=== PATIENT | female | born 1995 | race Two or more races ===

== ENCOUNTER 2019-05-09 22:12 | Emergency (ER) | payer OTHER ==
[~2019-05-09] VITALS: Ht 160 cm; Wt 127.0 kg
[2019-05-09] MEDS ORDERED: ONDANSETRON PF 4 MG/2 ML VIAL. IV ONE (23:00)
[2019-05-09] MEDS ORDERED: DEXAMETHASONE SOD PHOS 20 MG/5 ML VIAL. IV ONE (23:00)
[2019-05-09] MEDS ORDERED: ACETAMINOPHEN 500 MG TABLET PO ONE (23:00)
[2019-05-09] MEDS ORDERED: FAMOTIDINE 20 MG/2 ML VIAL IVP ONE (23:00)
[2019-05-09] MEDS ORDERED: IV NORMAL SALINE 1000ML BAG 1,000 ML IV ONE (23:00)
[2019-05-09] MEDS ORDERED: KETOROLAC 15 MG/ML VIAL. IV ONE (23:00)
[2019-05-09 23:05] LABS: BASO # 0.1 x10^3/uL (0.0-0.2); BASO % 1 % (0-3); EOS # 0.1 x10^3/uL (0.0-0.7); EOS % 1 % (0-3); HEMATOCRIT 33.4 % (36.0-47.0); HEMOGLOBIN 10.7 g/dL (12.0-15.5); LYMPH # 2.5 x10^3/uL (1.0-4.8); LYMPH % 40 % (24-48); MEAN CORPUSCULAR HEMOGLOBIN 24 pg (25-35); MEAN CORPUSCULAR HGB CONC 32 g/dL (31-37); MEAN CORPUSCULAR VOLUME 73 fL (79-100); MONO # 0.4 x10^3/uL (0.0-1.1); MONO % 7 % (0-9); NEUT # 3.2 x10^3uL (1.8-7.7); NEUT % 51 % (31-73); PLATELET COUNT 206 x10^3/uL (140-400); RED BLOOD COUNT 4.57 x10^6/uL (3.50-5.40); RED CELL DISTRIBUTION WIDTH 16.3 % (11.5-14.5); WHITE BLOOD COUNT 6.3 x10^3/uL (4.0-11.0)
[2019-05-09 23:14] LABS: CALCIUM 8.4 mg/dL (8.5-10.1); CREATININE 0.8 mg/dL (0.6-1.0); GFR 89.7; POTASSIUM 3.5 mmol/L (3.5-5.1)
[2019-05-09 23:21] LABS: ALBUMIN/GLOBULIN RATIO 0.7 (1.0-1.7); MAGNESIUM 1.7 mg/dL (1.8-2.4); TOTAL BILIRUBIN 0.5 mg/dL (0.2-1.0); TOTAL PROTEIN 7.4 g/dL (6.4-8.2)
--- NOTE | 2019-05-09 23:29 | PHYS DOC ---
Past Medical History Past Medical History: Other Additional Past Medical Histor: PREECLAMPSIA Past Surgical History: Other Additional Past Surgical Histo: EAR SX Alcohol Use: None Drug Use: None Adult General Chief Complaint Chief Complaint: NAUSEA/VOMITING/DIARRHA HPI HPI Patient is a 24 year old female with past medical history of preeclampsia and irritable bowel syndrome who presents with fever, cough and nausea ongoing for 4 days. In addition, the patient is complaining of a mild, frontal headache that is slightly worse than her normal headache. She denies any neck stiffness. She also reports mild shortness of breath, more pronounced when she lays flat. She reports this has been present intermittently since giving 4 months ago. The patient reports productive sputum that is nonbloody. She has been taking ibuprofen and Tylenol with moderate improvement in symptoms. She reports that she is up-to-date on her immunizations. Her last menstrual period was last month. She uses no contraception currently. She is breast-feeding but denies any breast pain, erythema or abnormal discharge. Patient reports a mild sore throat with on first day of symptoms but has since resolved. Review of Systems Review of Systems Constitutional: Reports fever. Denies chills Eyes: Denies redness or eye pain HENT: Denies nasal congestion. Reports sore throat that has since resolved. Respiratory: Reports cough and shortness of breath Cardiovascular: Denies chest pain or palpitations GI: Denies abdominal pain, or vomiting. Admits nausea : Denies dysuria or hematuria Musculoskeletal: Denies back pain or joint pain Integument: Denies rash or skin lesions Neurologic: Reports headache. Denies focal weakness or sensory changes Complete systems were reviewed and found to be within normal limits, except as documented in this note. Current Medications Current Medications Current Medications Medications (Trade) Dose Ordered Sig/[facility] Start Time Stop Time Status Last Admin Dose Admin Acetaminophen (Tylenol) 500 mg 1X ONCE 05/09/19 23:00 05/09/19 23:01 DC 05/09/19 23:00 500 MG Dexamethasone Sodium Phosphate (Decadron) 10 mg 1X ONCE 05/09/19 23:00 05/09/19 23:01 DC 05/09/19 23:10 10 MG Famotidine (Pepcid Vial) 20 mg 1X ONCE 05/09/19 23:00 05/09/19 23:01 DC 05/09/19 23:11 20 MG Ketorolac Tromethamine (Toradol 15mg Vial) 15 mg 1X ONCE 05/09/19 23:00 05/09/19 23:01 DC 05/09/19 23:11 15 MG Ondansetron HCl (Zofran) 4 mg 1X ONCE 05/09/19 23:00 05/09/19 23:01 DC 05/09/19 23:11 4 MG Sodium Chloride 1,000 ml @ 1,000 mls/hr 1X ONCE 05/09/19 23:00 05/09/19 23:59 05/09/19 23:10 1,000 MLS/HR Allergies Allergies Allergies Coded Allergies Type Severity Reaction Last Updated Verified sulfamethoxazole Allergy Intermediate 05/09/19 Yes trimethoprim Allergy Intermediate 05/09/19 Yes Physical Exam Physical Exam Constitutional: Well developed, well nourished, no acute distress, non-toxic appearance HENT: Normocephalic, atraumatic, oropharynx moist Eyes: PERRL, EOMI, conjunctiva normal, no discharge Neck: Normal range of motion, tenderness to left sided lymph node palpation, supple Cardiovascular: Heart rate normal, regular rhythm Lungs & Thorax: Bilateral breath sounds clear to auscultation, no wheezing Abdomen: Soft, no tenderness Skin: Warm, dry, no erythema, no rash Back: No tenderness, no CVA tenderness Extremities: No tenderness, ROM intact, no edema Neurologic: Alert and oriented X 3, normal motor function, normal sensory function, no focal deficits noted Psychologic: Affect normal, judgement normal, mood normal Current Patient Data Vital Signs Vital Signs Date Time Temp Pulse Resp B/P (MAP) Pulse Ox O2 Delivery O2 Flow Rate FiO2 05/09/19 22:50 102.1 130 18 149/78 (101) 99 Room Air 102.1 Lab Values Laboratory Tests Test 05/09/19 22:54 05/09/19 23:02 White Blood Count 6.3 x10^3/uL (4.0-11.0) Red Blood Count 4.57 x10^6/uL (3.50-5.40) Hemoglobin 10.7 g/dL (12.0-15.5) L Hematocrit 33.4 % (36.0-47.0) L Mean Corpuscular Volume 73 fL (79-100) L Mean Corpuscular Hemoglobin 24 pg (25-35) L Mean Corpuscular Hemoglobin Concent 32 g/dL (31-37) Red Cell Distribution Width 16.3 % (11.5-14.5) H Platelet Count 206 x10^3/uL (140-400) Neutrophils (%) (Auto) 51 % (31-73) Lymphocytes (%) (Auto) 40 % (24-48) Monocytes (%) (Auto) 7 % (0-9) Eosinophils (%) (Auto) 1 % (0-3) Basophils (%) (Auto) 1 % (0-3) Neutrophils # (Auto) 3.2 x10^3uL (1.8-7.7) Lymphocytes # (Auto) 2.5 x10^3/uL (1.0-4.8) Monocytes # (Auto) 0.4 x10^3/uL (0.0-1.1) Eosinophils # (Auto) 0.1 x10^3/uL (0.0-0.7) Basophils # (Auto) 0.1 x10^3/uL (0.0-0.2) Sodium Level 135 mmol/L (136-145) L Potassium Level 3.5 mmol/L (3.5-5.1) Chloride Level 102 mmol/L (98-107) Carbon Dioxide Level 24 mmol/L (21-32) Anion Gap 9 (6-14) Blood Urea Nitrogen 9 mg/dL (7-20) Creatinine 0.8 mg/dL (0.6-1.0) Estimated GFR (Cockcroft-Gault) 89.7 BUN/Creatinine Ratio 11 (6-20) Glucose Level 121 mg/dL (70-99) H Calcium Level 8.4 mg/dL (8.5-10.1) L Magnesium Level 1.7 mg/dL (1.8-2.4) L Total Bilirubin 0.5 mg/dL (0.2-1.0) Aspartate Amino Transferase (AST) 51 U/L (15-37) H Alanine Aminotransferase (ALT) 66 U/L (14-59) H Alkaline Phosphatase 109 U/L (46-116) Total Protein 7.4 g/dL (6.4-8.2) Albumin 3.0 g/dL (3.4-5.0) L Albumin/Globulin Ratio 0.7 (1.0-1.7) L Lipase 196 U/L (73-393) POC Urine HCG, Qualitative Hcg negative (Negative) Laboratory Tests 05/09/19 22:54 Laboratory Tests 05/09/19 22:54 EKG EKG [] Radiology/Procedures Radiology/Procedures [] Course & Med Decision Making Course & Med Decision Making Patient is a 24-year-old female who presents with fever cough and nausea. The patient was given Toradol and IV fluids to improve symptoms. Chest x-ray was reassuring with no consolidations. Zofran given which effectively controlled nausea. Rapid strep was negative. Steroids administered to decrease inflammation. Patient stable for discharge with outpatient follow-up with PCP. Discussed findings and plan with patient and family, who acknowledge understanding and agreement. Dragon Disclaimer Dragon Disclaimer This electronic medical record was generated, in whole or in part, using a voice recognition dictation system. Departure Departure Impression: Primary Impression: URI (upper respiratory infection) Additional Impressions: Fever Nausea Disposition: HOME, SELF-CARE Condition: STABLE Patient Instructions: Fever, Adult, [id number], Nausea, Adult, [id number], Upper Respiratory Infection, Adult, [id number]-[id number] Scripts Ondansetron Hcl (ZOFRAN) 4 Mg Tablet 1 TAB PO Q8HRS PRN for NAUSEA, #20 TAB Prov: AUSTIN SALDANA DO 05/09/19 Problem Qualifiers Primary Impression: URI (upper respiratory infection) URI type: unspecified URI Qualified Codes: J06.9 - Acute upper respiratory infection, unspecified Additional Impressions: Fever Fever type: unspecified Qualified Codes: R50.9 - Fever, unspecified AUSTIN SALDANA DO May 09, 2019 23:29
[2019-05-09] MEDS ORDERED: ONDA4TAB7 PO (23:48)
[2019-05-09 23:50] VITALS: BP 119/72
--- NOTE | 2019-05-10 08:27 | RAD ---
Exam performed: 2 views of the chest. Indication: Cough, fever and dizziness with shortness of air Date of Service: 05/09/2019 11:03 PM . Comparison : None available Findings: PA and lateral radiographs of the chest reveal a normal cardiomediastinal contour. The lungs are clear. No pleural fluid is seen. The visualized osseous structures are unremarkable. Impression: No acute cardiopulmonary process seen. Electronically signed by: Yessi Jessica MD (05/10/2019 8:24 AM) [facility]
== END 2019-05-10 00:04 | disposition home or self-care (01) ==
LOC: ER 22:12
DX: J06.9 Acute upper respiratory infection, unspecified (principal); R42 Dizziness and giddiness; R06.02 Shortness of breath; R51 Headache; K58.9 Irritable bowel syndrome, unspecified; Z88.1 Allergy status to other antibiotic agents; Z88.2 Allergy status to sulfonamides
CPT/HCPCS: 36415; 71046; 80053; 81025; 83690; 83735; 85025; 87070; 87880; 96361; 96374; 96375; 99285; J1100; J1885; J2405; J3490; J7030

== ENCOUNTER 2019-05-13 15:32 | Emergency (ER) | payer OTHER ==
[~2019-05-13] VITALS: Ht 160 cm; Wt 127.0 kg
[~2019-05-13 15:32] MED LIST: ONDA4TAB7 PO
[2019-05-13] MEDS ORDERED: ACETAMINOPHEN 500 MG TABLET PO ONE (16:15)
[2019-05-13 16:39] LABS: BILIRUBIN,URINE NEGATIVE (NEG); CLARITY,URINE CLEAR; COLOR,URINE YELLOW; NITRITE,URINE NEGATIVE (NEG); PROTEIN,URINE NEGATIVE (NEG-TRACE)
[2019-05-13 16:46] LABS: BACTERIA,URINE MANY /HPF (0-FEW); SQUAMOUS EPITHELIAL CELL,UR MANY /LPF
--- NOTE | 2019-05-13 16:55 | PHYS DOC ---
Past Medical History Past Medical History: Other Additional Past Medical Histor: PREECLAMPSIA Past Surgical History: Other Additional Past Surgical Histo: EAR SX Additional Information: 1 TO 3 CIGARETTES A DAY Alcohol Use: None Drug Use: None Adult General Chief Complaint Chief Complaint: COUGH HPI HPI Patient is a 24 year old female who presents with states 1 week of cough, bilateral lung pain with cough and vomiting. Patient states she's only vomited twice. Patient states she's been taking Tylenol. Patient currently rates her pain with coughing a 6 out of 10. Review of Systems Review of Systems Constitutional: fever or chills [] Eyes: Denies change in visual acuity, redness, or eye pain [] HENT: Denies nasal congestion or sore throat [] Respiratory: cough or denies shortness of breath [] Cardiovascular: No additional information not addressed in HPI [] GI: Denies abdominal pain. nausea, vomiting, denies bloody stools or diarrhea [] : Denies dysuria or hematuria [] Musculoskeletal: Denies back pain or joint pain [] Integument: Denies rash or skin lesions [] Neurologic: Denies headache, focal weakness or sensory changes [] All other systems were reviewed and found to be within normal limits, except as documented in this note. Current Medications Current Medications Current Medications Medications (Trade) Dose Ordered Sig/[facility] Start Time Stop Time Status Last Admin Dose Admin Acetaminophen (Tylenol) 1,000 mg 1X ONCE 05/13/19 16:15 05/13/19 16:18 DC 05/13/19 16:52 1,000 MG Albuterol Sulfate (Ventolin Neb Soln) 2.5 mg 1X ONCE 05/13/19 17:45 05/13/19 17:46 DC 05/13/19 17:55 2.5 MG Info (CONTRAST GIVEN -- Rx MONITORING) 1 each PRN DAILY PRN 05/13/19 19:45 05/15/19 19:44 Iohexol (Omnipaque 350 Mg/ml) 100 ml 1X ONCE 05/13/19 20:00 05/13/19 20:02 DC 05/13/19 19:45 100 ML Allergies Allergies Allergies Coded Allergies Type Severity Reaction Last Updated Verified sulfamethoxazole Allergy Intermediate 05/09/19 Yes trimethoprim Allergy Intermediate 05/09/19 Yes Physical Exam Physical Exam Constitutional: Well developed, well nourished, no acute distress, non-toxic appearance. [] HENT: Normocephalic, atraumatic, bilateral external ears normal, oropharynx moist, no oral exudates, nose normal. [] Eyes: PERRLA, EOMI, conjunctiva normal, no discharge. [] Neck: Normal range of motion, no tenderness, supple, no stridor. [] Cardiovascular:Heart rate regular rhythm, no murmur [] Lungs & Thorax: Bilateral upper breath sounds clear to auscultation and lower lung sounds are diminished.[] Abdomen: Bowel sounds normal, soft, no tenderness, no masses, no pulsatile masses. [] Skin: Warm, dry, no erythema, no rash. [] Back: No tenderness, no CVA tenderness. [] Extremities: No tenderness, no cyanosis, no clubbing, ROM intact, no edema. [] Neurologic: Alert and oriented X 3, normal motor function, normal sensory function, no focal deficits noted. [] Psychologic: Affect normal, judgement normal, mood normal. [] Current Patient Data Vital Signs Vital Signs Date Time Temp Pulse Resp B/P (MAP) Pulse Ox O2 Delivery O2 Flow Rate FiO2 05/13/19 19:54 99.0 117 20 133/84 (100) 98 Room Air 99.0 Lab Values Laboratory Tests Test 05/13/19 16:18 05/13/19 16:31 05/13/19 18:50 Urine Collection Type Void Urine Color Yellow Urine Clarity Clear Urine pH 7.0 Urine Specific [place] 1.020 Urine Protein Negative mg/dL (NEG-TRACE) Urine Glucose (UA) Negative mg/dL (NEG) Urine Ketones (Stick) Negative mg/dL (NEG) Urine Blood Negative (NEG) Urine Nitrite Negative (NEG) Urine Bilirubin Negative (NEG) Urine Urobilinogen Dipstick 1.0 mg/dL (0.2 mg/dL) Urine Leukocyte Esterase Small (NEG) Urine RBC 3-5 /HPF (0-2) Urine WBC 1-4 /HPF (0-4) Urine Squamous Epithelial Cells Many /LPF Urine Bacteria Many /HPF (0-FEW) POC Urine HCG, Qualitative Hcg negative (Negative) White Blood Count 8.3 x10^3/uL (4.0-11.0) Red Blood Count 4.78 x10^6/uL (3.50-5.40) Hemoglobin 11.3 g/dL (12.0-15.5) L Hematocrit 35.3 % (36.0-47.0) L Mean Corpuscular Volume 74 fL (79-100) L Mean Corpuscular Hemoglobin 24 pg (25-35) L Mean Corpuscular Hemoglobin Concent 32 g/dL (31-37) Red Cell Distribution Width 16.3 % (11.5-14.5) H Platelet Count 225 x10^3/uL (140-400) Neutrophils (%) (Auto) 42 % (31-73) Lymphocytes (%) (Auto) 48 % (24-48) Monocytes (%) (Auto) 8 % (0-9) Eosinophils (%) (Auto) 1 % (0-3) Basophils (%) (Auto) 1 % (0-3) Neutrophils # (Auto) 3.5 x10^3/uL (1.8-7.7) Lymphocytes # (Auto) 4.0 x10^3/uL (1.0-4.8) Monocytes # (Auto) 0.6 x10^3/uL (0.0-1.1) Eosinophils # (Auto) 0.1 x10^3/uL (0.0-0.7) Basophils # (Auto) 0.0 x10^3/uL (0.0-0.2) Platelet Estimate Pending Prothrombin Time 12.8 SEC (11.7-14.0) Prothrombin Time INR 1.0 (0.8-1.1) D-Dimer (Opal) 3.07 ug/mlFEU (0.00-0.50) H Sodium Level 138 mmol/L (136-145) Potassium Level 3.7 mmol/L (3.5-5.1) Chloride Level 102 mmol/L (98-107) Carbon Dioxide Level 26 mmol/L (21-32) Anion Gap 10 (6-14) Blood Urea Nitrogen 9 mg/dL (7-20) Creatinine 0.7 mg/dL (0.6-1.0) Estimated GFR (Cockcroft-Gault) 104.6 BUN/Creatinine Ratio 13 (6-20) Glucose Level 108 mg/dL (70-99) H Calcium Level 8.6 mg/dL (8.5-10.1) Total Bilirubin 0.3 mg/dL (0.2-1.0) Aspartate Amino Transferase (AST) 53 U/L (15-37) H Alanine Aminotransferase (ALT) 70 U/L (14-59) H Alkaline Phosphatase 116 U/L (46-116) Total Protein 7.2 g/dL (6.4-8.2) Albumin 3.0 g/dL (3.4-5.0) L Albumin/Globulin Ratio 0.7 (1.0-1.7) L Laboratory Tests 05/13/19 18:50 Laboratory Tests 05/13/19 18:50 EKG EKG Sinus tachycardia and no STEMI[] Interpretation Time: [address] Mcgill Radiology/Procedures Radiology/Procedures [] Impressions: [address] [address] IMAGING REPORT Signed PATIENT: ANGELA VANEGAS ACCOUNT: [id number] : 1995 LOCATION: ER AGE: 24 SEX: F EXAM STATUS: REG ER ORD. PHYSICIAN: ORLIN MEDRANO APRN REASON: cough, CHEST PAIN, PRESSURE, FEELS LIKE CANT BREATH PROCEDURE: CHEST PA & LATERAL PA and lateral chest. HISTORY: Cough, chest pain PA and lateral views were taken of the chest. Lungs are clear. Heart is normal in size without heart failure. There is no pleural effusion. IMPRESSION: 1. No acute chest disease. Electronically signed by: Camron Hernandez MD (05/13/2019 5:40 PM) [facility] DICTATED and SIGNED BY: CAMRON HERNANDEZ MD DATE: 05/13/[address] [id number] IMAGING REPORT Signed PATIENT: ANGELA VANEGAS ACCOUNT: [id number] : 1995 LOCATION: ER AGE: 24 SEX: F EXAM STATUS: REG ER ORD. PHYSICIAN: ORLIN MEDRNAO APRN REASON: elevated ddimer, soa, chest pain PROCEDURE: CT ANGIOGRAPHY CHEST CT arteriogram of the chest. HISTORY: Chest pain, short of breath, elevated d-dimer CT arteriogram was done using 100 mL Omnipaque 350 contrast. Thyroid is homogeneous. There is no mediastinal adenopathy or pleural effusion. Visualized portions of liver and spleen are unremarkable. Adrenal glands are normal. Lungs are free of confluent infiltrates. There is mild groundglass atelectasis in the lung bases from poor inspiration. Sagittal and coronal MIP images were reconstructed. Study is negative for evidence of a pulmonary embolus. IMPRESSION: 1. Negative for pulmonary embolus. 2. Poor inspiration. 3. No acute infiltrates. PQRS Compliance Statement: One or more of the following individualized dose reduction techniques were utilized for this examination: 1. Automated exposure control 2. Adjustment of the mA and/or kV according to patient size 3. Use of iterative reconstruction technique Electronically signed by: Camron Hernandez MD (05/13/2019 7:55 PM) [facility] DICTATED and SIGNED BY: CAMRON HERNANDEZ MD DATE: 05/13/191954 Course & Med Decision Making Course & Med Decision Making Patient is a 24 year old female who presents with states 1 week of cough, bilat eral lung pain with cough and vomiting. Patient states she's only vomited twice. Patient states she's been taking Tylenol. Patient currently rates her pain with coughing a 6 out of 10. Alert and oriented. Skin pink warm and dry. Mucous membranes are moist. Abdomen soft and nontender. Patient denies diarrhea, ear pain, head pain, throat pain, shortness of air, chest pain. Patient's heart rate is tachycardia at 121. She is afebrile. Lungs are clear to up her lobes and diminished in lower lobes. Throat reddened without exudates. Bilateral tympanics pearly white. No calf tenderness, no lower leg swelling, no hormone use, no prior PE or DVT. Patient began complaining of soa. Vital signs remain stable except that her heart rate is elevated at 120. Patient does state that it does hurt when she takes a deep breath meaning pleuritic pain. I have ordered a ddimer. Chest xray shows no acute findings. D-dimer is elevated at 3.07. I Have ordered a CT of her chest. CT Chest shows IMPRESSION: 1. Negative for pulmonary embolus. 2. Poor inspiration. 3. No acute infiltrates. Patient will be given medrol dose pack. Dragon Disclaimer Dragon Disclaimer This [employer] medical record was generated, in whole or in part, using a voice recognition dictation system. Departure Departure Impression: Primary Impression: Cough Disposition: 01 HOME, SELF-CARE Condition: STABLE Referrals: NO PCP (PCP) Patient Instructions: Cough, Adult Additional Instructions: Follow-up her primary care provider take medications as prescribed. Continue taking Tylenol or ibuprofen for ear pain and/or fever. Scripts Methylprednisolone (MEDROL) 4 Mg Tab.ds.pk 1 PKG PO UD, #1 PKG Prov: ORLIN MEDRANO APRN 05/13/19 ORLIN MEDRANO APRN May 13, 2019 16:55
--- NOTE | 2019-05-13 17:43 | RAD ---
PA and lateral chest. HISTORY: Cough, chest pain PA and lateral views were taken of the chest. Lungs are clear. Heart is normal in size without heart failure. There is no pleural effusion. IMPRESSION: 1. No acute chest disease. Electronically signed by: Camron Hernandez MD (05/13/2019 5:40 PM) [facility]
[2019-05-13] MEDS ORDERED: ALBUTEROL SULFATE 2.5 MG/3 ML NEBU. NEB ONE (17:45)
[2019-05-13 19:18] LABS: BASO % 1 % (0-3); EOS # 0.1 x10^3/uL (0.0-0.7); EOS % 1 % (0-3); HEMATOCRIT 35.3 % (36.0-47.0); HEMOGLOBIN 11.3 g/dL (12.0-15.5); LYMPH % 48 % (24-48); MEAN CORPUSCULAR HEMOGLOBIN 24 pg (25-35); MEAN CORPUSCULAR HGB CONC 32 g/dL (31-37); MEAN CORPUSCULAR VOLUME 74 fL (79-100); MONO # 0.6 x10^3/uL (0.0-1.1); MONO % 8 % (0-9); NEUT # 3.5 x10^3/uL (1.8-7.7); NEUT % 42 % (31-73); PLATELET COUNT 225 x10^3/uL (140-400); RED BLOOD COUNT 4.78 x10^6/uL (3.50-5.40); RED CELL DISTRIBUTION WIDTH 16.3 % (11.5-14.5); WHITE BLOOD COUNT 8.3 x10^3/uL (4.0-11.0)
[2019-05-13 19:20] LABS: PROTHROMBIN TIME PATIENT 12.8 SEC (11.7-14.0)
[2019-05-13 19:21] LABS: CALCIUM 8.6 mg/dL (8.5-10.1); CREATININE 0.7 mg/dL (0.6-1.0); GFR 104.6; POTASSIUM 3.7 mmol/L (3.5-5.1)
[2019-05-13 19:27] LABS: ALBUMIN/GLOBULIN RATIO 0.7 (1.0-1.7); TOTAL BILIRUBIN 0.3 mg/dL (0.2-1.0); TOTAL PROTEIN 7.2 g/dL (6.4-8.2)
[2019-05-13] MEDS ORDERED: CONTRAST GIVEN. MC PRN (19:45)
[2019-05-13 19:54] VITALS: BP 133/84
--- NOTE | 2019-05-13 19:58 | RAD ---
CT arteriogram of the chest. HISTORY: Chest pain, short of breath, elevated d-dimer CT arteriogram was done using 100 mL Omnipaque 350 contrast. Thyroid is homogeneous. There is no mediastinal adenopathy or pleural effusion. Visualized portions of liver and spleen are unremarkable. Adrenal glands are normal. Lungs are free of confluent infiltrates. There is mild groundglass atelectasis in the lung bases from poor inspiration. Sagittal and coronal MIP images were reconstructed. Study is negative for evidence of a pulmonary embolus. IMPRESSION: 1. Negative for pulmonary embolus. 2. Poor inspiration. 3. No acute infiltrates. PQRS Compliance Statement: One or more of the following individualized dose reduction techniques were utilized for this examination: 1. Automated exposure control 2. Adjustment of the mA and/or kV according to patient size 3. Use of iterative reconstruction technique Electronically signed by: Camron Hernandez MD (05/13/2019 7:55 PM) [facility]
[2019-05-13] MEDS ORDERED: IOHEXOL 350 MG/ML 100 ML VIAL. IV ONE (20:00)
[2019-05-13] MEDS ORDERED: METH4TAB2 PO (20:12)
[2019-05-13 20:31] LABS: % ATYL 4 % (0-0); % BANDS 4 % (0-9); % BASOS 1 % (0-3); % EOS 1 % (0-5); % LYMPHS 42 % (24-48); % MONOS 3 % (0-10); % SEGS 45 % (35-66); HYPOCHROMIA SLIGHT; MICROCYTOSIS SLIGHT; PLT ESTIMATE ADEQUATE (ADEQUATE)
--- NOTE | 2019-05-14 06:25 | EKG ---
[facility] [address] [place] [address] Test Date: 2019-05-13 Test Time: 18:25:19 Pat Name: ANGELA VANEGAS Department: Room: Gender: F [employer] Professional: : 1995 Requested By: ORLIN MEDRANO Order Number: [id number] Reading MD: Measurements Intervals [place] Rate: 113 P: 31 ME: 110 QRS: 9 QRSD: 86 T: -24 QT: 328 QTc: 455 Interpretive Statements SINUS TACHYCARDIA T ABNORMALITY IN INFERIOR LEADS ABNORMAL ECG No previous ECG available for comparison
== END 2019-05-13 20:20 | disposition home or self-care (01) ==
LOC: ER 15:32
DX: R05 Cough (principal); R11.10 Vomiting, unspecified; R07.89 Other chest pain; R06.02 Shortness of breath; R79.1 Abnormal coagulation profile; R00.0 Tachycardia, unspecified; F17.210 Nicotine dependence, cigarettes, uncomplicated; Z88.1 Allergy status to other antibiotic agents; Z88.2 Allergy status to sulfonamides
CPT/HCPCS: 36415; 71046; 71275; 80053; 81001; 81025; 85007; 85025; 85379; 85610; 87086; 93005; 94640; 99285; J7613; Q9967